=== PATIENT | male | born 1955 | race Caucasian/White ===

== ENCOUNTER 2019-08-02 08:15 | Day surgery (SDC) | payer MEDICARE, MEDICAID ==
[2019-07-31 10:10] LABS: PARTIAL THROMBOPLASTIN TIME 25 SECONDS (22-32)
[2019-07-31 10:11] LABS: BASOPHILS # (AUTO) 0.1 X10'3 (0-0.2); BASOPHILS % (AUTO) 0.6 % (0-1); EOSINOPHILS # (AUTO) 0.2 X10'3 (0-0.9); EOSINOPHILS % (AUTO) 1.6 % (0-6); HEMOGLOBIN 16.3 g/dl (14.0-17.9); LYMPHOCYTES # (AUTO) 2.6 X10'3 (1.1-4.8); LYMPHOCYTES % (AUTO) 25.6 % (21-51); MEAN CORPUSCULAR HEMOGLOBIN 30.5 PG (27.0-31.0); MEAN CORPUSCULAR HGB CONC 34.6 g/dL (33.0-36.5); MEAN CORPUSCULAR VOLUME 88.1 FL (78-98); MEAN PLATELET VOLUME 10.2 FL (7.4-10.4); MONOCYTES # (AUTO) 0.8 X10'3 (0-0.9); MONOCYTES % (AUTO) 7.9 % (2-12); NEUTROPHILS # (AUTO) 6.5 X10'3 (1.8-7.7); NEUTROPHILS % (AUTO) 64.3 % (42-75); PLATELET COUNT 184 X10'3 (140-440); RED BLOOD COUNT 5.34 X10'6 (4.70-6.10); RED CELL DISTRIBUTION WIDTH 14.6 % (11.5-14.5); WHITE BLOOD COUNT 10.1 X10'3 (4.5-11.0)
[2019-07-31 10:12] LABS: ALANINE AMINOTRANSFERASE 27 U/L (12-78); ALBUMIN 3.8 G/DL (3.4-5.0); ALBUMIN/GLOBULIN RATIO 0.8 (1.1-1.5); ALKALINE PHOSPHATASE 96 IU/L (46-116); ANION GAP 10 (8-16); ASPARTATE AMINO TRANSFERASE 18 U/L (10-37); BILIRUBIN,TOTAL 0.3 MG/DL (0.1-1.0); BLOOD UREA NITROGEN 14 MG/DL (7-18); BUN/CREATININE RATIO 15.1 (5.4-32.0); CALCIUM 9.7 MG/DL (8.5-10.1); CHLORIDE 106 MMOL/L (99-107); CREATININE 0.93 MG/DL (0.60-1.10); GLUCOSE 85 MG/DL (70-104); POTASSIUM 4.4 MMOL/L (3.5-5.1); SODIUM 143 MMOL/L (135-145); TOTAL CARBON DIOXIDE 27.1 MMOL/L (24-32); TOTAL PROTEIN 8.3 G/DL (6.4-8.2); eGFR 82 ML/MIN
[2019-08-02] VITALS (11 sets, daily range): BP systolic 56–158; BP diastolic 43–87
[~2019-08-02] VITALS: Ht 175.3 cm; Wt 84.4 kg
[2019-08-02] MEDS ORDERED: nitroGLYCERIN 0.4mg SUBLingual tab SL PRN (08:45)
[2019-08-02] MEDS ORDERED: normal saline 1,000 ML IV SCH (08:50)
[2019-08-02] MEDS ORDERED: LORazepam 0.5 MG tablet PO PRN (08:50)
[2019-08-02] MEDS ORDERED: diphenhydrAMINE 25mg capsule PO PRN (08:50)
[2019-08-02] MEDS ORDERED: ASPI-1265 PO (09:54)
[2019-08-02] MEDS ORDERED: TAM50T PO (09:54)
[2019-08-02] MEDS ORDERED: CARSR60C PO (09:54)
[2019-08-02] MEDS ORDERED: ACET-75 PO (09:54)
[2019-08-02] MEDS ORDERED: FLUT1BLS4 (09:54)
[2019-08-02] MEDS ORDERED: ATEN-169 PO (09:54)
[2019-08-02] MEDS ORDERED: ZET10T PO (09:54)
[2019-08-02] MEDS ORDERED: TIZA4CAP PO (09:54)
[2019-08-02] MEDS ORDERED: LIDOcaine/PRILOcaine 5gm cream TP ONE (10:10)
[2019-08-02] MEDS ORDERED: midazolam 2 mg/2 ml injection ONE (11:09)
[2019-08-02] MEDS ORDERED: verapamil 2.5 mg/ml inj IV ONE (11:09)
[2019-08-02] MEDS ORDERED: iohexol 350 MG/ML 50ML vial IV ONE ×3 (11:09→12:11)
[2019-08-02] MEDS ORDERED: iohexol 350MG/ML 100ml bottle IV ONE (11:09)
[2019-08-02] MEDS ORDERED: heparin 1,000unit/ml 10ml vial 10 ML ONE (11:09)
[2019-08-02] MEDS ORDERED: LIDOcaine 1% (10mg/ml)w/preservative injection 20ml MDV ONE (11:09)
[2019-08-02] MEDS ORDERED: fentaNYL/PF 50MCG/1 ML 2ML syringe ONE (11:09)
[2019-08-02] MEDS ORDERED: heparin 1,000 UNITS/NS 500ml 500 ML ONE (11:10)
[2019-08-02] MEDS ORDERED: nitroGLYCERIN-Tridil 50MG/D5W 250 ML IV ONE (11:10)
[2019-08-02] MEDS ORDERED: OXAZEpam 15mg capsule PO PRN (12:55)
[2019-08-02] MEDS ORDERED: proCHLORperazine 10 MG/2 ml inj IV PRN (12:55)
[2019-08-02] MEDS ORDERED: HYDROcodone/acetaminophen 5mg/325mg tablet PO PRN (12:55)
[2019-08-02] MEDS ORDERED: HYDROcodone/acetaminophen 10/325mg tab PO PRN (12:55)
[2019-08-02] MEDS ORDERED: ondansetron/PF 4mg/2ml inj IV PRN (12:55)
== END 2019-08-02 18:25 | disposition home or self-care (01) ==
LOC: SSTAY O 08:15
PROVIDERS: ATTEND Internal Medicine Cardiovascular Disease
DX: R94.39 Abnormal result of other cardiovascular function study (principal); I25.10 Atherosclerotic heart disease of native coronary artery without angina pectoris; J44.9 Chronic obstructive pulmonary disease, unspecified; F17.210 Nicotine dependence, cigarettes, uncomplicated; I10 Essential (primary) hypertension; I48.0 Paroxysmal atrial fibrillation; E78.00 Pure hypercholesterolemia, unspecified; N40.0 Benign prostatic hyperplasia without lower urinary tract symptoms; M19.90 Unspecified osteoarthritis, unspecified site; Z79.82 Long term (current) use of aspirin; Z79.899 Other long term (current) drug therapy; Z85.46 Personal history of malignant neoplasm of prostate
CPT/HCPCS: 36415; 71046; 80053; 85025; 85610; 85730; 93005; 93459; 99152; 99153; C1769; C1894; J1644; J2001; J2250; J3010; J7030; Q0163; Q9967; 93458; A4620; J3490

== ENCOUNTER 2019-09-12 13:23 | Emergency (ER) | payer MEDICARE, MEDICAID ==
[~2019-09-12] VITALS: Ht 175.3 cm; Wt 78.4 kg
[~2019-09-12 13:23] MED LIST: ACET-75 PO; ASPI-1265 PO; ATEN-169 PO; CARSR60C PO; FLUT1BLS4; TAM50T PO; TIZA4CAP PO; ZET10T PO
[2019-09-12 13:35] VITALS: BP 171/88
== END 2019-09-12 15:10 | disposition home or self-care (01) ==
LOC: ER 13:24
DX: G56.22 Lesion of ulnar nerve, left upper limb (principal); Z88.8 Allergy status to other drugs, medicaments and biological substances; Z79.82 Long term (current) use of aspirin; Z79.899 Other long term (current) drug therapy
CPT/HCPCS: 99281

== ENCOUNTER 2021-10-22 07:18 | Day surgery (SDC) | payer MEDICARE, MEDICAID ==
[2021-10-15 11:32] LABS: BASOPHILS # (AUTO) 0.1 X10'3 (0-0.2); BASOPHILS % (AUTO) 0.8 % (0-1); EOSINOPHILS # (AUTO) 0.3 X10'3 (0-0.9); EOSINOPHILS % (AUTO) 3.3 % (0-6); LYMPHOCYTES # (AUTO) 1.3 X10'3 (1.1-4.8); LYMPHOCYTES % (AUTO) 16.1 % (21-51); MEAN CORPUSCULAR HEMOGLOBIN 28.7 PG (27.0-31.0); MEAN CORPUSCULAR HGB CONC 33.6 g/dL (33.0-36.5); MEAN CORPUSCULAR VOLUME 85.5 FL (78-98); MEAN PLATELET VOLUME 9.7 FL (7.4-10.4); MONOCYTES # (AUTO) 0.8 X10'3 (0-0.9); MONOCYTES % (AUTO) 10.1 % (2-12); NEUTROPHILS # (AUTO) 5.6 X10'3 (1.8-7.7); NEUTROPHILS % (AUTO) 69.7 % (42-75); PRE OP HEMATOCRIT 51.3 % (42.0-52.0); PRE OP HEMOGLOBIN 17.2 g/dL (14.0-17.9); PRE OP PLATELET COUNT 184 X10'3 (140-440); RED CELL DISTRIBUTION WIDTH 14.9 % (11.5-14.5)
[2021-10-15 11:51] LABS: ALBUMIN 3.6 G/DL (3.4-5.0); ALBUMIN/GLOBULIN RATIO 0.8 (1.1-1.5); ALKALINE PHOSPHATASE 100 IU/L (46-116); BLOOD UREA NITROGEN 16 MG/DL (7-18); BUN/CREATININE RATIO 16.5 (5.4-32.0); CALCIUM 9.7 MG/DL (8.5-10.1); CHLORIDE 105 MMOL/L (99-107); CREATININE 0.97 MG/DL (0.60-1.10); PRE OP ALT 31 U/L (30-65); PRE OP ANION GAP 10 (8-16); PRE OP AST 17 U/L (10-37); PRE OP BILIRUB, TOTAL 0.4 MG/DL (0.0-1.0); PRE OP GLUCOSE 87 MG/DL (70-104); PRE OP POTASSIUM 3.9 MMOL/L (3.4-5.1); PRE OP SODIUM 139 MMOL/L (135-145); TOTAL CARBON DIOXIDE 23.8 MMOL/L (24-32); eGFR 77 ML/MIN
[2021-10-15 11:55] LABS: CLARITY,URINE CLEAR (Clear); COLOR,URINE YELLOW (Yellow); GLUCOSE, URINE NEGATIVE (Neg); KETONES,URINE NEGATIVE (Neg); LEUKOCYTE ESTERASE ,URINE NEGATIVE (Neg); NITRITES, URINE NEGATIVE (Neg); OCCULT BLOOD,URINE SMALL (Neg); PH,URINE 5.5 (4.8-8.0); PROTEIN,URINE NEGATIVE (Neg); UROBILINOGEN,URINE 0.2 E.U/dL (0.2-1.0)
[2021-10-15 12:01] LABS: UA COLLECTION TYPE VOIDED
[2021-10-15 12:02] LABS: SQUAMOUS EPITHELIAL CELL,UR FEW /LPF (FEW)
[2021-10-15 12:03] LABS: BACTERIA,URINE FEW /HPF (Neg); CAL OXALATE CRYSTALS FEW /HPF (NEGATIVE); RBC,URINE 0-2 /HPF (0-2); WBC,URINE 0-4 /HPF (0-4)
[2021-10-22] VITALS (16 sets, daily range): BP systolic 116–158; BP diastolic 68–86
[~2021-10-22] VITALS: Ht 175.3 cm; Wt 86.2 kg
[~2021-10-22 07:18] MED LIST changes: -ACET-75 PO; -ASPI-1265 PO; -CARSR60C PO; +DOCUMENT DATE & TIME OF BETA-BLOCKER PO ONE; +FLO0.4C PO; -FLUT1BLS4; +NITR0.4T51 SL; -TAM50T PO; -TIZA4CAP PO; -ZET10T PO; +albuterol 2.5 MG/3 ML nebule NEB ONE; +cefazolin/dext.iso 2gm/50ml IV ONE; +famotidine 20mg tablet PO ONE; +ringers solution, lacted 1,000 ML IV SCH
[2021-10-22] MEDS ORDERED: BUPIVAcaine/PF 2.5 mg/ml (0.25%) 30ml vial ONE (09:45)
[2021-10-22] MEDS ORDERED: dexamethasone sod phosphate 10mg/ml inj ONE (10:43)
[2021-10-22] MEDS ORDERED: sevoflurane 250ml liquid IH ONE (10:43)
[2021-10-22] MEDS ORDERED: propofol inj 20 ML IV ONE (10:44)
[2021-10-22] MEDS ORDERED: rocuronium 10mg/ml inj IV ONE (10:44)
[2021-10-22] MEDS ORDERED: fentaNYL/PF 50MCG/1 ML 2ML syringe ONE (10:44)
[2021-10-22] MEDS ORDERED: midazolam 1 mg/ML 2ml injection ONE (10:44)
[2021-10-22] MEDS ORDERED: ondansetron/PF 4mg/2ml inj IV PRN (11:00)
[2021-10-22] MEDS ORDERED: morphine 2 MG/ML inj. syringe IV PRN (11:00)
[2021-10-22] MEDS ORDERED: meperidine/PF 25mg/ml syringe IV PRN ×2 (11:00)
[2021-10-22] MEDS ORDERED: ringers solution, lacted 1,000 ML IV SCH (11:00)
[2021-10-22] MEDS ORDERED: proCHLORperazine 10 MG/2 ml inj IV PRN (11:00)
[2021-10-22] MEDS ORDERED: morphine 4 MG/ML inj SYRINge IV PRN (11:00)
[2021-10-22] MEDS ORDERED: ondansetron/PF 4mg/2ml inj ONE (11:57)
[2021-10-22] MEDS ORDERED: neostigmine methylsulfate 1 MG/ML 10ml vial ONE (11:57)
[2021-10-22] MEDS ORDERED: glycopyrrolate 0.2mg/ml inj ONE (11:57)
--- NOTE | 2021-10-22 12:25 | NUR ---
Received from OR via [facility], accompanied by Anesthesiologist DR LYON and report given by Anesthesiologist. PT VERY DROWSY, NO S/S OF DISTRESS/DISCOMFORT. ABDOMEN W/3 LAP SITES W/SMALL ISLAND DRSG COVERING CDI. Addendum: 10/22/[address] Paul RN Amended: Links added.
[2021-10-22] MEDS: meperidine/PF 25mg/ml syringe IV PRN ×2 (12:40→12:52)
--- NOTE | 2021-10-22 15:13 | NUR ---
PT UP WALKING AROUND, STABLE W/AMBULATION. SCANNED BLADDER FOR 85 ML URINE. PT DRINKING SODA AND WATER. PAIN TOLERABLE. Addendum: 10/22/[address] Paul RN Amended: Links added.
[2021-10-22] MEDS ORDERED: traMADol 50MG tablet PO ONE (15:20)
--- NOTE | 2021-10-22 15:46 | NUR ---
PT UP AMBULATING, VOIDED, RESCANNED BLADDER FOR 17 ML URINE. PT AWAITING FAMILY TO BE D/CD TO HOME. Addendum: 10/22/[address] Paul RN Amended: Links added.
--- NOTE | 2021-10-22 17:35 | NUR ---
PT COMFORTABLE, VOIDED X 3. D/C INSTRUCTIONS GIVEN AND GONE OVER W/PT AND PTS GRANDDAUGHTER WHOM BOTH VERBALIZED UNDERSTANDING. PT D/CD TO HOME VIA W/C TO PRIVATE VEHICLE W/O INCIDENT. Addendum: 10/22/[address] Paul RN Amended: Links added.
== END 2021-10-22 17:35 | disposition home or self-care (01) ==
LOC: PAS 07:18
PROVIDERS: ATTEND Surgery
DX: K40.90 Unilateral inguinal hernia, without obstruction or gangrene, not specified as recurrent (principal); I48.91 Unspecified atrial fibrillation; I10 Essential (primary) hypertension; F17.210 Nicotine dependence, cigarettes, uncomplicated; N40.0 Benign prostatic hyperplasia without lower urinary tract symptoms; G89.29 Other chronic pain; J44.9 Chronic obstructive pulmonary disease, unspecified; Z85.46 Personal history of malignant neoplasm of prostate; Z79.82 Long term (current) use of aspirin; Z79.899 Other long term (current) drug therapy; Z20.822 Contact with and (suspected) exposure to COVID-19
CPT/HCPCS: 36415; 49650; 71045; 80053; 81001; 82948; 85025; 93005; 94640; 94760; C1758; C1781; J0690; J1100; J2175; J2250; J2405; J2704; J2710; J3010; J3490; J7030; J7120; U0003; U0005; Z7506; Z7508; Z7512; A4215; A4618

== ENCOUNTER 2022-03-26 23:02 | Emergency (ER) | payer MEDICARE, MEDICAID ==
[~2022-03-26] VITALS: Ht 175.3 cm; Wt 86.4 kg
[~2022-03-26 23:02] MED LIST changes: -DOCUMENT DATE & TIME OF BETA-BLOCKER PO ONE; -albuterol 2.5 MG/3 ML nebule NEB ONE; -cefazolin/dext.iso 2gm/50ml IV ONE; -famotidine 20mg tablet PO ONE; -ringers solution, lacted 1,000 ML IV SCH
[2022-03-26 23:34] LABS: BASOPHILS # (AUTO) 0.1 X10'3 (0-0.2); BASOPHILS % (AUTO) 0.6 % (0-1); EOSINOPHILS # (AUTO) 0.1 X10'3 (0-0.9); HEMATOCRIT 49.2 % (42.0-52.0); HEMOGLOBIN 16.1 g/dl (14.0-17.9); LYMPHOCYTES # (AUTO) 1.2 X10'3 (1.1-4.8); LYMPHOCYTES % (AUTO) 9.5 % (21-51); MEAN CORPUSCULAR HEMOGLOBIN 27.3 PG (27.0-31.0); MEAN CORPUSCULAR HGB CONC 32.7 g/dL (33.0-36.5); MEAN CORPUSCULAR VOLUME 83.3 FL (78-98); MEAN PLATELET VOLUME 9.6 FL (7.4-10.4); MONOCYTES # (AUTO) 0.8 X10'3 (0-0.9); MONOCYTES % (AUTO) 6.1 % (2-12); NEUTROPHILS # (AUTO) 10.3 X10'3 (1.8-7.7); NEUTROPHILS % (AUTO) 82.8 % (42-75); PLATELET COUNT 169 X10'3 (140-440); RED BLOOD COUNT 5.91 X10'6 (4.70-6.10); RED CELL DISTRIBUTION WIDTH 14.7 % (11.5-14.5); WHITE BLOOD COUNT 12.4 X10'3 (4.5-11.0)
[2022-03-26 23:47] LABS: ANION GAP 13 (8-16); BILIRUBIN,TOTAL 0.3 MG/DL (0.1-1.0); BLOOD UREA NITROGEN 15 MG/DL (7-18); BUN/CREATININE RATIO 11.9 (5.4-32.0); CHLORIDE 108 MMOL/L (99-107); CREATININE 1.26 MG/DL (0.60-1.10); GLUCOSE 151 MG/DL (70-104); POTASSIUM 3.8 MMOL/L (3.5-5.1); SODIUM 142 MMOL/L (135-145); TOTAL CARBON DIOXIDE 21.3 MMOL/L (24-32); TOTAL PROTEIN 7.2 G/DL (6.4-8.2); eGFR 57 ML/MIN
[2022-03-26 23:48] LABS: ALANINE AMINOTRANSFERASE 31 U/L (12-78); ALBUMIN 3.5 G/DL (3.4-5.0); ALBUMIN/GLOBULIN RATIO 0.9 (1.1-1.5); ALKALINE PHOSPHATASE 108 IU/L (46-116); ASPARTATE AMINO TRANSFERASE 20 U/L (10-37)
[2022-03-27] MEDS ORDERED: aspirin 325mg tablet, delayed-release (Ecotrin) PO ONE (00:05)
[2022-03-27] MEDS ORDERED: morphine 4 MG/ML inj SYRINge IV ONE (00:10)
[2022-03-27] MEDS ORDERED: ondansetron/PF 4mg/2ml inj IV ONE (00:10)
[2022-03-27] MEDS ORDERED: normal saline 1000ml 1,000 ML IV ONE (00:15)
[2022-03-27 00:40] LABS: D-DIMER 1.16 MG/L FEU (0-0.50)
[2022-03-27] MEDS ORDERED: enoxaparin 100mg/ml syringe SUBCUT ONE (01:15)
[2022-03-27 07:33] VITALS: BP 124/64
== END 2022-03-27 07:36 | disposition home or self-care (01) ==
LOC: ER 23:03
DX: R07.89 Other chest pain (principal); M79.604 Pain in right leg; M79.605 Pain in left leg; M25.562 Pain in left knee; R53.1 Weakness; I48.91 Unspecified atrial fibrillation; I10 Essential (primary) hypertension; F17.200 Nicotine dependence, unspecified, uncomplicated; Z88.8 Allergy status to other drugs, medicaments and biological substances; Z79.899 Other long term (current) drug therapy
CPT/HCPCS: 36415; 71045; 80053; 83880; 84484; 85025; 85379; 93005; 93970; 96361; 96372; 96374; 96375; 99285; J1650; J2270; J2405; J7030

== ENCOUNTER 2022-04-21 15:04 | Emergency (ER) | payer MEDICARE, MEDICAID ==
[~2022-04-21] VITALS: Ht 175.3 cm; Wt 88.6 kg
[2022-04-21 15:29] VITALS: BP 143/77
[2022-04-21] MEDS ORDERED: normal saline 1000ML IV soln IVB ONE (15:40)
[2022-04-21 16:00] LABS: BASOPHILS # (AUTO) 0.1 X10'3 (0-0.2); BASOPHILS % (AUTO) 0.5 % (0-1); EOSINOPHILS % (AUTO) 0.2 % (0-6); HEMATOCRIT 48.5 % (42.0-52.0); HEMOGLOBIN 16.4 g/dl (14.0-17.9); LYMPHOCYTES # (AUTO) 1.2 X10'3 (1.1-4.8); LYMPHOCYTES % (AUTO) 7.9 % (21-51); MEAN CORPUSCULAR HEMOGLOBIN 28.1 PG (27.0-31.0); MEAN CORPUSCULAR HGB CONC 33.9 g/dL (33.0-36.5); MEAN CORPUSCULAR VOLUME 82.9 FL (78-98); MONOCYTES # (AUTO) 1.1 X10'3 (0-0.9); MONOCYTES % (AUTO) 7.3 % (2-12); NEUTROPHILS # (AUTO) 12.3 X10'3 (1.8-7.7); NEUTROPHILS % (AUTO) 84.1 % (42-75); PLATELET COUNT 219 X10'3 (140-440); RED BLOOD COUNT 5.85 X10'6 (4.70-6.10); WHITE BLOOD COUNT 14.6 X10'3 (4.5-11.0)
[2022-04-21 16:24] LABS: ALANINE AMINOTRANSFERASE 38 U/L (12-78); ALBUMIN 3.2 G/DL (3.4-5.0); ALBUMIN/GLOBULIN RATIO 0.7 (1.1-1.5); ALKALINE PHOSPHATASE 123 IU/L (46-116); ANION GAP 15 (8-16); ASPARTATE AMINO TRANSFERASE 29 U/L (10-37); BILIRUBIN,TOTAL 0.5 MG/DL (0.1-1.0); BLOOD UREA NITROGEN 28 MG/DL (7-18); BUN/CREATININE RATIO 25.9 (5.4-32.0); CALCIUM 9.3 MG/DL (8.5-10.1); CHLORIDE 103 MMOL/L (99-107); CREATININE 1.08 MG/DL (0.60-1.10); GLUCOSE 102 MG/DL (70-104); LIPASE 140 U/L (73-393); POTASSIUM 4.1 MMOL/L (3.5-5.1); SODIUM 139 MMOL/L (135-145); TOTAL CARBON DIOXIDE 21.2 MMOL/L (24-32); eGFR 68 ML/MIN
[2022-04-21 19:02] LABS: OCCULT BLOOD STOOL NEGATIVE (Neg)
== END 2022-04-21 18:55 | disposition home or self-care (01) ==
LOC: ER 15:05
DX: K92.1 Melena (principal); I11.9 Hypertensive heart disease without heart failure; Z88.8 Allergy status to other drugs, medicaments and biological substances; Z79.899 Other long term (current) drug therapy
CPT/HCPCS: 36415; 80053; 82272; 83690; 84145; 85025; 86885; 86900; 86901; 96360; 99284; J7030